=== PATIENT | male | born 1990 | race American Indian/Alaskan Native ===

== ENCOUNTER 2022-01-23 13:01 | Outpatient (CLI) | payer OTHER ==
--- NOTE | 2022-01-23 15:02 | XRay Report ---
Left knee 3 views INDICATION: Left knee pain IMPRESSION: No fracture or subluxation of the left knee Signer Name: Nicholas Somers MD Signed: 01/23/2022 2:57 PM Workstation Name: [email or web address]
== END 2022-01-23 13:02 | disposition home or self-care (01) ==
LOC: XRAY 13:01
PROVIDERS: ATTEND Family Medicine
DX: M25.562 Pain in left knee (principal)